=== PATIENT | male | born 1965 | race American Indian/Alaskan Native ===

== ENCOUNTER 2016-07-19 06:20 | Day surgery (SDC) | payer OTHER ==
[2016-07-19] MEDS ORDERED: SUBLIMAZE IV PRN (06:55)
[2016-07-19] MEDS ORDERED: ZOFRAN IV PRN (06:55)
--- NOTE | 2016-07-19 06:56 | Anesthesia Day of Surgery ---
Anesthesia Day of Surgery - Day of Surgery Patient Examined: Yes Patient H&P Reviewed: Yes Patient is NPO: Yes
--- NOTE | 2016-07-19 06:57 | Anesthesia Consultation ---
Anesthesia Consult and Med Hx Date of service: 07/19/16 - Airway Anesthetic Teeth Evaluation: Good, Partials (lower) ROM Head & Neck: Adequate Mental/Hyoid Distance: Adequate Mallampati Class: Class II Intubation Access Assessment: Probably Good - Pulmonary Exam CTA: Yes - Cardiac Exam Cardiac Exam: RRR - Pre-Operative Health Status ASA Pre-Surgery Classification: ASA3 Proposed Anesthetic Plan: General - Pulmonary Hx Smoking: Yes (STOPPED 1991- 1 PACK PER WEEK) Hx Sleep Apnea: No (TRANG PRE SCREEN HIGH RISK) - Cardiovascular System Hx Hypertension: Yes (SINCE AGE 23 YRS OLD) - Endocrine Hx Renal Disease: Yes (soliary kidmey) - Other Systems Hx Cancer: No - Additional Comments Anesthesia Medical History Comments: antiphospholipid-hx PE
[2016-07-19] MEDS ORDERED: NACL 0.9% 1000 ML 1,000 ML IV SCH (07:00)
[2016-07-19] MEDS ORDERED: VERSED IV NR (07:00)
[2016-07-19] MEDS ORDERED: PEPCID PO NR (07:00)
[2016-07-19] MEDS ORDERED: NACL BACTERIOSTATIC INFILTRATI ONE (07:06)
[2016-07-19] MEDS ORDERED: SUBLIMAZE ONE (07:21)
[2016-07-19] MEDS ORDERED: XYLOCAINE MPF 2% ONE (07:21)
[2016-07-19] MEDS ORDERED: DIPRIVAN 10 MG/ML IV ONE ×2 (07:22→09:05)
[2016-07-19 07:40] LABS: INR 0.93 (0.87-1.13)
[2016-07-19 07:41] LABS: Partial Thromboplastin Time 23.3 Sec. (24.2-36.6)
[2016-07-19] MEDS ORDERED: VERSED ONE (08:58)
[2016-07-19] MEDS ORDERED: DECADRON ONE (09:15)
[2016-07-19] MEDS ORDERED: ZOFRAN ONE (09:15)
[2016-07-19] MEDS ORDERED: WATER FOR IRRIG STERILE IR ONE (09:20)
[2016-07-19] MEDS ORDERED: OMNIPAQUE (300 MG) IR ONE (09:20)
[2016-07-19] MEDS ORDERED: NEO SYNEPHRINE/NS Syringe(OR USE) IV ONE (09:30)
[2016-07-19] MEDS ORDERED: ANCEF/STERILE WATER 2 GM/20 ML IV NR (09:37)
--- NOTE | 2016-07-19 10:27 | Fluoroscopy Report ---
RETROGRADE PYELOGRAM: History: Abnormal urine cytology. There is adequate filling of the left ureter and intrarenal collecting system with no filling defect or anatomic abnormalities identified. The right pyelogram was not performed. Bladder biopsy was performed per the operative notes by Dr. Molina.
[2016-07-19] MEDS: DILAUDID IV PRN ×2 (10:38→14:02)
--- NOTE | 2016-07-19 11:23 | Post Anesthesia Evaluation ---
- Post Anesthesia Evaluation Patient Participated: Yes Airway Patent: Yes Stable Respiratory Function: Yes Nausea/Vomiting: No Temp > 96.8F: Yes Pain Manageable: Yes Adequeate Hydration: Yes Anesthesia Complications: No Block Receding Appropriately: Not Applicable Patient on Ventilator: No
--- NOTE | 2016-07-19 14:00 | Short Stay Summary ---
Short Stay Documentation Date of service: 07/19/16 - Allergies and Medications Current Medications: Allergies Beta-Blockers (Beta-Adrenergic Bloc Adverse Reaction (Verified 07/05/16 16:12) FATIGUE Home Medications Medication Instructions Recorded Confirmed Last Taken Type Warfarin [Coumadin] 5 mg PO QDAY #30 tablet 09/28/14 07/19/16 07/12/16 Rx Cefuroxime Axetil [Ceftin] 500 mg PO Q12H 07/11/16 07/19/16 07/18/16 History Oxybutynin [Ditropan] 5 mg PO DAILY 07/11/16 07/19/16 07/19/16 History Tadalafil [Cialis] 20 mg PO PRN PRN 07/11/16 07/19/16 07/12/16 History Valsartan/Hydrochlorothiazide 1 tab PO QDAY 07/11/16 07/19/16 07/19/16 History [Diovan Hct 160-12.5 mg] oxyCODONE /ACETAMINOPHEN [Percocet 1 tab PO PRN PRN 07/11/16 07/19/16 07/18/16 History 5/325 mg] Active Medications Cefazolin Sodium (Ancef/Sterile Water 2 Gm/20 Ml) 2 gm IV PREOP NR Stop: 07/19/16 23:59 Fentanyl (Sublimaze) 50 mcg IV Q5MIN PRN PRN Reason: Pain , Severe (7-10) Stop: 07/22/16 06:56 Hydromorphone HCl (Dilaudid) 0.25 mg IV Q10MIN PRN PRN Reason: Pain, Moderate (4-6) Stop: 07/22/16 06:56 Last Admin: 07/19/16 10:38 Dose: 0.25 mg Sodium Chloride (Nacl 0.9% 1000 Ml) 1,000 mls @ 100 mls/hr IV DIRECT MAURICIO Last Admin: 07/19/16 07:10 Dose: 100 mls/hr Midazolam HCl (Versed) 2 mg IV PREOP NR Stop: 07/19/16 23:59 Last Admin: 07/19/16 07:29 Dose: 2 mg - Brief post op/procedure progress note Date of procedure: 07/19/16 Pre-op diagnosis: abn urine studies; bph; pelvic pain Post-op diagnosis: same Procedure: cysto bladder bx / fulg, prst urethra bx left rpg Anesthesia: GETA Findings: lg med, ext to oj; left rpg neg rt lat bn susp, Surgeon: RENUKA GONCALVES Estimated blood loss: minimal Pathology: list - Hospital course Hospital course: orpacu vase eval for post anticoag; - Disposition Condition at discharge: Good Disposition: DISCHARGED TO HOME OR SELFCARE Short Stay Discharge Plan Activity: advance as tolerated Diet: advance as tolerated Follow up with: RENUKA GONCALVES MD [Staff Physician] - 7 Days
--- NOTE | 2016-07-19 14:40 | Consultation ---
History of Present Illness - Reason for Consult Consult date: 07/19/16 Assistance in resumption of anticoagulation Requesting physician: RENUKA MOLINA - History of Present Illness This patient is a 50-year-old male that presents as an outpatient for cystoscopy. This was performed earlier today, and biopsies were taken. The patient has a reported hypercoagulable state. He was previously on Coumadin. This was held up for his procedure. He states he's been off anticoagulation for 7-8 days. He and his family stated concerns to his urologist. A vascular surgery consult is now requested for assistance in resuming anticoagulation. The patient states he had a pulmonary embolus about 5 or 6 years ago. He was started on anticoagulation at that point, and has been on Coumadin ever since. He denied any knowledge of previous DVT's, but was unsure if a venous duplex was performed Past History Past Medical History: hypertension, pulmonary embolism (In 2014), other ( Hypercoagulable state - Anti-phospholipid syndrome) Past Surgical History: Other (Above stated Cystoscopy with bx earlier today, ORIF in 2001, Neck/Chest surgery 2007, Partial Orchiectomy 1968) Social history: single (with 1 child). denies: smoking (quit smoking in 1990), alcohol abuse (drinks alcohol socially) Family history: CAD, cancer, diabetes, hypertension, stroke, other (Reports other members of family have a genetic predisposition to forming clots.) Medications and Allergies Allergies Allergy/AdvReac Type Severity Reaction Status Date / Time Beta-Blockers AdvReac FATIGUE Verified 07/05/16 16:12 (Beta-Adrenergic Bloc Home Medications Medication Instructions Recorded Confirmed Last Taken Type Warfarin [Coumadin] 5 mg PO QDAY #30 tablet 09/28/14 07/19/16 07/12/16 Rx Cefuroxime Axetil [Ceftin] 500 mg PO Q12H 07/11/16 07/19/16 07/18/16 History Oxybutynin [Ditropan] 5 mg PO DAILY 07/11/16 07/19/16 07/19/16 History Tadalafil [Cialis] 20 mg PO PRN PRN 07/11/16 07/19/16 07/12/16 History Valsartan/Hydrochlorothiazide 1 tab PO QDAY 07/11/16 07/19/16 07/19/16 History [Diovan Hct 160-12.5 mg] oxyCODONE /ACETAMINOPHEN [Percocet 1 tab PO PRN PRN 07/11/16 07/19/16 07/18/16 History 5/325 mg] Active Meds: Active Medications Cefazolin Sodium (Ancef/Sterile Water 2 Gm/20 Ml) 2 gm IV PREOP NR Stop: 07/19/16 23:59 Fentanyl (Sublimaze) 50 mcg IV Q5MIN PRN PRN Reason: Pain , Severe (7-10) Stop: 07/22/16 06:56 Hydromorphone HCl (Dilaudid) 0.25 mg IV Q10MIN PRN PRN Reason: Pain, Moderate (4-6) Stop: 07/22/16 06:56 Last Admin: 07/19/16 14:02 Dose: 0.25 mg Sodium Chloride (Nacl 0.9% 1000 Ml) 1,000 mls @ 100 mls/hr IV DIRECT MAURICIO Last Admin: 07/19/16 07:10 Dose: 100 mls/hr Midazolam HCl (Versed) 2 mg IV PREOP NR Stop: 07/19/16 23:59 Last Admin: 07/19/16 07:29 Dose: 2 mg Review of Systems All systems: negative Exam - Constitutional Vitals: Temp Pulse Resp BP Pulse Ox 97.6 F 67 16 152/99 98 07/19/16 11:15 07/19/16 11:15 07/19/16 14:02 07/19/16 11:15 07/19/16 11:15 General appearance: Present: no acute distress - EENT Eyes: Present: EOM intact ENT: hearing intact - Neck Neck: Present: supple - Respiratory Respiratory effort: normal - Extremities Extremities: no ischemia, normal temperature - Psychiatric Psychiatric: appropriate mood/affect, intact judgment & insight, cooperative - Neurologic Neurologic: no focal deficits Results - Labs Labs: Abnormal lab results 07/19/16 Range/Units 07:10 APTT 23.3 L (24.2-36.6) Sec. - Imaging and Cardiology Venous US: other (the lower extremity are preliminary venous duplex report was reviewed and found to be negative for DVT bilaterally) Assessment and Plan This patient presented for an outpatient procedure which was performed earlier today (cystoscopy with biopsy). He has a underlying hypercoagulable state (antiphospholipid syndrome). He's been off Coumadin for approximately 8 days in preparation for the procedure. He voiced concerns to his urologist about his anticoagulation. A vascular surgery consult has been requested to assist in resumption of anticoagulation in preparation for the patient to follow-up with his primary care provider upon discharge. A venous duplex was performed to ensure that the patient does not have a DVT presently. The study was negative for any evidence of acute DVT. We discussed options in resuming his anticoagulation. These included Lovenox/ Coumadin, or Eliquis/Coumadin. The Patient stated an eversion to self injections. I called and spoke with the patient's primary care provider, Dr. Della Pacheco. The patient will be discharged on Eliquis 10 mg by mouth every 12 hours to be taken in addition to his normal dose of daily Coumadin. This was explained to the patient in great detail. He states understanding and agrees to comply. He will follow-up with Dr. Diamond's office as instructed ( either later this week or early next week). He was given 1 week's supply of samples. His first dose will be given prior to discharge. He presently has mild pink tinged urine (expected post procedure). If this becomes progressively bloody, he will notify Dr. Molina. All questions were asked and answered. The patient will call for follow-up appointments. Thank you for this consultation, we will see the patient again as needed. - Patient Problems (1) Antiphospholipid antibody with hypercoagulable state Current Visit: Yes Status: Acute (2) History of pulmonary embolism Current Visit: Yes Status: Acute (3) Dysuria Current Visit: Yes Status: Acute (4) Hypertension Current Visit: No Status: Acute Qualifiers: Hypertension type: H
[2016-07-19] MEDS ORDERED: ELIQUIS PO SCH (16:00)
[2016-07-19 17:11] VITALS: BP 149/90
--- NOTE | 2016-07-20 09:42 | Vascular Lab Report ---
LOWER EXTREMITY VENOUS DUPLEX: REASON FOR EXAM: Swelling of the lower extremities. COMMENTS ON THE RIGHT: All veins visualized are freely compressible without evidence of internal echogenicity. Flow is spontaneous and phasic throughout. COMMENTS ON THE LEFT: All veins visualized are freely compressible without evidence of internal echogenicity. Flow is spontaneous and phasic throughout. IMPRESSION: No evidence of acute or chronic deep venous thrombosis in either lower extremity.
--- NOTE | 2016-07-23 16:20 | Operative Report ---
PREOPERATIVE DIAGNOSES: Recurrent prostatitis, pelvic pain, solitary kidney, history of abnormal bladder ____. POSTOPERATIVE DIAGNOSES: Recurrent prostatitis, pelvic pain, solitary kidney, history of abnormal bladder ____, bladder lesion, large median lobe, benign prostatic hypertrophy. SURGEON: Willard Molina MD ANESTHESIA: General. SPECIMEN: Bladder biopsies of lesion and random. COMPLICATIONS: None. FINDINGS: There was a very unusually large median lobe extending all the way from the verumontanum towards the bladder neck, but not extending too far into the bladder. Pancystoscopy demonstrated just at the right of bladder neck, there was a slightly small papillary lesion. An additionally with this large median lobe and mass along there were some areas of they look slightly irregular that were planned for biopsy. At this point, left UO cannulated with 8-Faroese cone-tip catheter, contrast injected. Normal left distal ureter, proximal ureter, renal pelvis calyces, no filling defects or hydro with prompt drainage. There was no right kidney. At this point, biopsy was taken of the posterior bladder wall and base right and left and random biopsy taken. Now our suspicious areas just right lateral to the bladder neck biopsy was taken. Additionally of the median lobe area to the patient's right more proximally of the prosthetic median lobe, a biopsy was taken slightly irregular area. All areas were cauterized. Left ureteral orifice was effluxing well. The scope was withdrawn, exam under anesthesia demonstrated a solitary testicle. Digital rectal exam, prostate, no nodules. The patient was awakened, transferred to PACU in good and stable condition. [facility]# [id number] ATS/NTS
== END 2016-07-19 17:05 | disposition home or self-care (01) ==
LOC: OR 06:20
PROVIDERS: ATTEND Urology
DX: N41.1 Chronic prostatitis (principal); D30.3 Benign neoplasm of bladder; N30.20 Other chronic cystitis without hematuria; N40.0 Benign prostatic hyperplasia without lower urinary tract symptoms; I10 Essential (primary) hypertension; D68.61 Antiphospholipid syndrome; D68.59 Other primary thrombophilia; Z79.01 Long term (current) use of anticoagulants; Z86.711 Personal history of pulmonary embolism; Z90.79 Acquired absence of other genital organ(s); Z87.891 Personal history of nicotine dependence; Z72.89 Other problems related to lifestyle; Z82.3 Family history of stroke; Z82.49 Family history of ischemic heart disease and other diseases of the circulatory system; Z83.3 Family history of diabetes mellitus; Z80.9 Family history of malignant neoplasm, unspecified; Z83.2 Family history of diseases of the blood and blood-forming organs and certain disorders involving the immune mechanism
CPT/HCPCS: 36415; 52204; 74420; 85610; 85730; 88305; 93970; A4217; C1758; J0690; J1100; J1170; J2250; J2370; J2405; J2704; J3010; J7030; Q9967

== ENCOUNTER 2018-02-27 19:33 | Emergency (ER) | payer OTHER ==
[2018-02-27] MEDS ORDERED: NACL 0.9% 1000 ML 1,000 ML IV ONE (20:24)
[2018-02-27 20:51] LABS: Basophils % (Auto) 0.5 % (0.0-1.8); Eosinophils # (Auto) 0.1 K/mm3 (0.0-0.4); Eosinophils % (Auto) 2.2 % (0.0-4.3); Hemoglobin 15.1 gm/dl (11.8-15.2); Mean Corpuscular HGB Conc 34 % (32-34); Mean Corpuscular Volume 95 fl (84-94); Monocytes # (Auto) 0.3 K/mm3 (0.0-0.8); Platelet Count 154 K/mm3 (140-440); Red Blood Count 4.74 M/mm3 (3.65-5.03); Red Cell Distribution Width 13.5 % (13.2-15.2)
[2018-02-27 20:58] LABS: INR 1.57 (0.87-1.13)
[2018-02-27 20:59] LABS: Partial Thromboplastin Time 26.5 Sec. (24.2-36.6)
[2018-02-27 21:07] LABS: Alanine Aminotransferase 22 units/L (7-56); Albumin 4.4 g/dL (3.9-5); BUN/Creatinine Ratio 10; Blood Urea Nitrogen 11 mg/dL (9-20); Calcium 9.2 mg/dL (8.4-10.2); Hemolysis Index 10
[2018-02-27 22:03] LABS: Bilirubin,Urine NEG (Negative); Blood,Urine NEG (Negative); Color,Urine Yellow (Yellow); Mucus,Urine FEW /HPF; Protein,Urine <15 mg/dL mg/dL (Negative); Urobilinogen,Urine < 2.0 mg/dL (<2.0)
[2018-02-27] MEDS ORDERED: DILAUDID IM ONE (23:19)
--- NOTE | 2018-02-27 23:21 | Emergency Department Report ---
ED General Adult HPI - General Chief complaint: Abdominal Pain Stated complaint: ABD PAIN Time Seen by Provider: 02/27/18 23:02 Source: patient, RN notes reviewed, old records reviewed Mode of arrival: Ambulatory Limitations: No Limitations - History of Present Illness Initial comments: This is a 52-year-old gentleman. The patient reports a history of pulmonary embolus, and reports that his primary care doctor, Dr. Della Mckay, is currently maintaining him on to anticoagulants; Coumadin and eliquis He may have a history of lupus-related antiphospholipid antibody, and is not certain. He does not currently have a barker operator. He reports that he does not have a otr owner operator truck driver. 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 Today, the patient presents to the ER with a primary complaint of left-sided abdominal pain. This pain is achy, cramping and sharp, intermittent, present since around Juanito time. The patient reports being seen at another hospital, and was prescribed famotidine. He reports not having any imaging performed. He reports his pain does not appear to radiate anywhere, and has basically been present since Juanito, but got worse today. He denies headache, neck pain, chest pain, irritated, obstructive urinary symptoms as well as testicular pain. He denies hematemesis, bright red blood per rectum. He also endorses a secondary complaint of shortness of breath, present for months, reports to his primary care doctor has referred him to a caser in, and that he has not followed up yet. This shortness of breath has been intermittent for the past few months, his pain thus, does not have exacerbating or relieving factors, with the exception of physical exertion, as per the patient. -: Gradual Location: abdomen Radiation: non-radiation Quality: aching Consistency: other Improves with: other Worsens with: other Associated Symptoms: shortness of breath - Related Data Home Medications Medication Instructions Recorded Confirmed Last Taken Tadalafil [Cialis] 20 mg PO PRN PRN 07/11/16 02/27/18 07/12/16 Valsartan/Hydrochlorothiazide 1 tab PO QDAY 07/11/16 02/27/18 07/19/16 [Diovan Hct 160-12.5 mg] Apixaban [Eliquis] 5 mg PO DAILY 02/27/18 02/27/18 Unknown Previous Rx's Medication Instructions Recorded Last Taken Type Warfarin [Coumadin] 5 mg PO QDAY #30 tablet 09/28/14 07/12/16 Rx Acetaminophen [Tylenol Arthritis] 650 mg PO Q6HR PRN #30 tablet.er 02/28/18 Unknown Rx Allergies Allergy/AdvReac Type Severity Reaction Status Date / Time Sulfa (Sulfonamide Allergy Unknown Verified 02/27/18 20:20 Antibiotics) Beta-Blockers AdvReac FATIGUE Verified 07/05/16 16:12 (Beta-Adrenergic [facility] ED Review of Systems ROS: Stated complaint: ABD PAIN Other details as noted in HPI Constitutional: denies: fever Eyes: denies: vision change ENT: denies: congestion Respiratory: shortness of breath. denies: cough Cardiovascular: denies: chest pain Gastrointestinal: abdominal pain Genitourinary: denies: urgency, dysuria, frequency, testicular pain Musculoskeletal: denies: back pain Skin: denies: lesions Neurological: weakness Psychiatric: anxiety ED Past Medical Hx - Past Medical History Hx Hypertension: Yes (SINCE AGE 23 YRS OLD) Hx Pulmonary Embolism: Yes Hx Renal Disease: Yes (soliary kidmey) Hx HIV: No Additional medical history: PE 2010 - Surgical History Additional Surgical History: ledt hand fusion, cervical neck surgery - Social History Smoking Status: Never Smoker Substance Use Type: Alcohol - Medications Home Medications: Home Medications Medication Instructions Recorded Confirmed Last Taken Type Warfarin [Coumadin] 5 mg PO QDAY #30 tablet 09/28/14 02/27/18 07/12/16 Rx Tadalafil [Cialis] 20 mg PO PRN PRN 07/11/16 02/27/18 07/12/16 History Valsartan/Hydrochlorothiazide 1 tab PO QDAY 07/11/16 02/27/18 07/19/16 History [Diovan Hct 160-12.5 mg] Apixaban [Eliquis] 5 mg PO DAILY 02/27/18 02/27/18 Unknown History Acetaminophen [Tylenol Arthritis] 650 mg PO Q6HR PRN #30 tablet.er 02/28/18 Unknown Rx ED Physical Exam - General Limitations: No Limitations General appearance: alert, in no apparent distress - Head Head exam: Present: atraumatic, normocephalic - Eye Eye exam: Present: normal appearance, EOMI. Absent: nystagmus - ENT ENT exam: Present: normal exam, normal orophraynx, mucous membranes moist, normal external ear exam - Neck Neck exam: Present: normal inspection, full ROM. Absent: tenderness, meningismus - Respiratory Respiratory exam: Present: decreased breath sounds. Absent: respiratory distres s, wheezes, rales, rhonchi, stridor - Cardiovascular Cardiovascular Exam: Present: regular rate, normal rhythm, normal heart sounds. Absent: bradycardia, tachycardia, irregular rhythm, systolic murmur, diastolic murmur, rubs, gallop - GI/Abdominal GI/Abdominal exam: Present: soft, tenderness, other (there is left-sided abdominal tenderness, with no rebound, guarding or peritoneal signs). Absent: distended, guarding, rebound, rigid, pulsatile mass - Rectal Rectal exam: Present: deferred - exam: Present: normal inspection, testicular tenderness, other (chaperoned by nurse Pearl Gold) External exam: Present: normal external exam, other (there is testicular tenderness. There is normal testicular lie. Uncertain which testicle is present.) - Extremities Exam Extremities exam: Present: normal inspection - Back Exam Back exam: Present: normal inspection, full ROM. Absent: paraspinal tenderness, vertebral tenderness - Neurological Exam Neurological exam: Present: alert, oriented X3, other (Extraocular movements intact. Tongue midline. No facial droop. Facial sensation intact to light touch in the V1, V2, V3 distribution bilaterally. 5 and 5 strength in 4 extremities.. Sensation is intact to light touch in 4 extremities.). Absent: motor sensory deficit - Psychiatric Psychiatric exam: Present: normal affect, normal mood - Skin Skin exam: Present: warm, dry, intact, normal color. Absent: rash ED Course Vital Signs 02/27/18 19:58 Temperature 98.1 F Pulse Rate 87 Respiratory 16 Rate Blood Pressure 139/89 O2 Sat by Pulse 98 Oximetry - Reevaluation(s) Reevaluation #1: 02/28/18 00:49 Differential diagnosis, including but not limited to: Orchitis, epididymitis, torsion, urinary tract infection, renal colic, retroperitoneal hematoma, colitis, diverticulitis, pulmonary embolus, pneumonia Assessment and plan: 52-year-old gentleman with a primary complaint of abdominal pain, secondary complaint of shortness of breath, reports compliance with 2 systemic anticoagulant medications, reports no IVC filter, with a negative d- dimer, with no tachycardia or hypoxia, based off of this information, I feel the patient is low posttest probability, does not require additional risk stratification for pulmonary embolus. A noncontrast CT scan of the abdomen and pelvis is pending, given history of being born with single kidney. A urinalysis is pending, and the patient was found to have testicular tenderness on his examination, although not having pain. Urinalysis is pending, as well as testicular ultrasound. We will reassess after his initial data points. An EKG is also pending at this time. Reevaluation #2: 02/28/18 02:09 Testicular ultrasound negative for acute immediate surgical disease. CT scan of the abdomen and pelvis suggest prostatic abnormality, otherwise no acute disease. Patient resting comfortably for hours, and appears to be in no acute d istress at this point in time. I have counseled the patient to follow-up with his outpatient urologist, Dr. Miller He will be counseled to modify his anticoagulation consumption, and discontinue Coumadin, and to follow up with a barker operator for his leukopenia, and a otr owner operator truck driver or barker operator for his reported hypercoagulable state. He will be counseled to follow up with an outpatient caser in. There does not appear to be an emergent medical condition at this time, the patient will be medically stable to follow up as an outpatient. ED Medical Decision Making - Lab Data Result diagrams: 02/27/18 20:38 02/27/18 20:38 Vital Signs 02/27/18 19:58 Temperature 98.1 F Pulse Rate 87 Respiratory 16 Rate Blood Pressure 139/89 O2 Sat by Pulse 98 Oximetry Lab Results 02/27/18 02/27/18 02/27/18 Range/Units 20:38 20:38 20:38 WBC 2.4 L (4.5-11.0) K/mm3 RBC 4.74 (3.65-5.03) M/mm3 Hgb 15.1 (11.8-15.2) gm/dl Hct 45.0 (35.5-45.6) % MCV 95 H (84-94) fl MCH 32 (28-32) pg MCHC 34 (32-34) % RDW 13.5 (13.2-15.2) % Plt Count 154 (140-440) K/mm3 Lymph % (Auto) 41.0 H (13.4-35.0) % [place] % (Auto) 14.0 H (0.0-7.3) % Eos % (Auto) 2.2 (0.0-4.3) % Baso % (Auto) 0.5 (0.0-1.8) % Lymph # 1.0 L (1.2-5.4) K/mm3 [place] # 0.3 (0.0-0.8) K/mm3 Eos # 0.1 (0.0-0.4) K/mm3 Baso # 0.0 (0.0-0.1) K/mm3 Seg Neutrophils % 42.3 (40.0-70.0) % Seg Neutrophils # 1.0 L (1.8-7.7) K/mm3 PT 19.2 H (12.2-14.9) Sec. INR 1.57 H (0.87-1.13) APTT 26.5 (24.2-36.6) Sec. D-Dimer (0-234) ng/mlDDU Sodium 141 (137-145) mmol/L Potassium 4.1 (3.6-5.0) mmol/L Chloride 101.8 (98-107) mmol/L Carbon Dioxide 30 (22-30) mmol/L Anion Gap 13 mmol/L BUN 11 (9-20) mg/dL Creatinine 1.1 (0.8-1.5) mg/dL Estimated GFR > 60 ml/min BUN/Creatinine Ratio 10 % Glucose 95 (75-100) mg/dL Calcium 9.2 (8.4-10.2) mg/dL Total Bilirubin 0.20 (0.1-1.2) mg/dL AST 23 (5-40) units/L ALT 22 (7-56) units/L Alkaline Phosphatase 55 (35-129) units/L Total Protein 7.7 (6.3-8.2) g/dL Albumin 4.4 (3.9-5) g/dL Albumin/Globulin Ratio 1.3 % Lipase 40 (13-60) units/L Urine Color (Yellow) Urine Turbidity (Clear) Urine pH (5.0-7.0) Ur Specific [place] (1.003-1.030) Urine Protein (Negative) mg/dL Urine Glucose (UA) (Negative) mg/dL Urine Ketones (Negative) mg/dL Urine Blood (Negative) Urine Nitrite (Negative) Urine Bilirubin (Negative) Urine Urobilinogen (<2.0) mg/dL Ur Leukocyte Esterase (Negative) Urine WBC (Auto) (0.0-6.0) /HPF Urine RBC (Auto) (0.0-6.0) /HPF U Epithel Cells (Auto) (0-13.0) /HPF Urine Mucus /HPF 02/27/18 02/27/18 Range/Units 20:38 21:04 WBC (4.5-11.0) K/mm3 RBC (3.65-5.03) M/mm3 Hgb (11.8-15.2) gm/dl Hct (35.5-45.6) % MCV (84-94) fl MCH (28-32) pg MCHC (32-34) % RDW (13.2-15.2) % Plt Count (140-440) K/mm3 Lymph % (Auto) (13.4-35.0) % [place] % (Auto) (0.0-7.3) % Eos % (Auto) (0.0-4.3) % Baso % (Auto) (0.0-1.8) % Lymph # (1.2-5.4) K/mm3 [place] # (0.0-0.8) K/mm3 Eos # (0.0-0.4) K/mm3 Baso # (0.0-0.1) K/mm3 Seg Neutrophils % (40.0-70.0) % Seg Neutrophils # (1.8-7.7) K/mm3 PT (12.2-14.9) Sec. INR (0.87-1.13) APTT (24.2-36.6) Sec. D-Dimer 153.37 (0-234) ng/mlDDU Sodium (137-145) mmol/L Potassium (3.6-5.0) mmol/L Chloride (98-107) mmol/L Carbon Dioxide (22-30) mmol/L Anion Gap mmol/L BUN (9-20) mg/dL Creatinine (0.8-1.5) mg/dL Estimated GFR ml/min BUN/Creatinine Ratio % Glucose (75-100) mg/dL Calcium (8.4-10.2) mg/dL Total Bilirubin (0.1-1.2) mg/dL AST (5-40) units/L ALT (7-56) units/L Alkaline Phosphatase (35-129) units/L Total Protein (6.3-8.2) g/dL Albumin (3.9-5) g/dL Albumin/Globulin Ratio % Lipase (13-60) units/L Urine Color Yellow (Yellow) Urine Turbidity Clear (Clear) Urine pH 5.0 (5.0-7.0) Ur Specific [place] 1.019 (1.003-1.030) Urine Protein <15 mg/dl (Negative) mg/dL Urine Glucose (UA) Neg (Negative) mg/dL Urine Ketones Neg (Negative) mg/dL Urine Blood Neg (Negative) Urine Nitrite Neg (Negative) Urine Bilirubin Neg (Negative) Urine Urobilinogen < 2.0 (<2.0) mg/dL Ur Leukocyte Esterase Neg (Negative) Urine WBC (Auto) 1.0 (0.0-6.0) /HPF Urine RBC (Auto) 2.0 (0.0-6.0) /HPF U Epithel Cells (Auto) 1.0 (0-13.0) /HPF Urine Mucus Few /HPF - EKG Data -: EKG Interpreted by Ut EKG shows normal: sinus rhythm - EKG Data 02/28/18 02:08 Sinus, 68 bpm, normal axis, WI interval prolonged, high left ventricular voltage, unchanged from prior from 2014, not consistent with ST elevation myocardial infarction. - Radiology Data Radiology results: pending, report reviewed, image reviewed interpreted by me: X-ray of the chest is negative for acute disease. Ordering Physician: ROBERT MCKENZIE MD Date of Service: 02/27/18 Procedure(s): US testicular doppler comp Accession Number(s): [id number] cc: ROBERT MCKENZIE MD FINAL REPORT EXAM: US Testicular CLINICAL INDICATIONS: TESTICULAR PAIN FINDINGS: Real-time ultrasound of the scrotum was performed. The right testicle is not seen. The patient presently has history of undescended right testicle. The left testicle measures 5.1 x 2.8 x 3.9 cm. There is no evidence of testicular mass or testicular torsion. The left epididymal head measures 1.0 x 1.3 cm. No mass is seen. There is a small left hydrocele. IMPRESSION: THE RIGHT TESTICLE IS NOT SEEN NO EVIDENCE OF LEFT TESTICULAR MASS OR TESTICULAR TORSION Transcribed By: ANGELA Dictated By: ANSHU PHILLIPS MD Electronically Authenticated By: ANSHU PHILLIPS MD Signed Date/Time: 02/28/18 0149 cc: ROBERT MCKENZIE MD FINAL REPORT EXAM: CT A/P w/o Contrast CLINICAL INDICATIONS: ABD PAIN FINDINGS: Unenhanced CT of the abdomen and pelvis was performed. There is coronary artery calcification. The ascending thoracic aorta is mildly dilated at 4.1 cm. Abdomen: No suspect focal hepatic lesion is seen. The spleen, adrenal glands, pancreas, gallbladder are unremarkable. No normal right kidney is seent. There is a small reniform soft tissue density anterior to the right psoas muscle at the level of L3-L4, axial images 96-97 which could represent a very small right kidney, approximately 1.6 x 0.6 cm, likely consequence of remote renal insult. The left kidney is normal in size. There is a 0.2 cm left nonobstructing renal calculus. No ureteral calculus or hydronephrosis is identified. There is no small or large bowel obstruction. Pelvis: There is a normal appendix. The prostate appears large and appears to extend into the soft tissues to the right of the expected prostatic margin on images 171-178. Prostatic mass is not excluded. Consider correlation with pelvic MRI or correlation with serum PSA as clinically indicated. The urinary bladder is unremarkable. The right testicle was not seen in the scrotum on ultrasound. No testicle is seen in the visualized portion of the inguinal canal. IMPRESSION: ABDOMEN: NO NORMAL RIGHT KIDNEY IS SEEN. THERE IS A SMALL RENIFORM STRUCTURE AN TERIOR TO THE RIGHT PSOAS MUSCLE WHICH COULD REPRESENT A VERY SMALL RIGHT KIDNEY, LIKELY CONSEQUENCE OF REMOTE LEFT RIGHT RENAL INSULT SMALL LEFT NONOBSTRUCTING RENAL CALCULUS. NO URETERAL CALCULUS OR HYDRONEPHROSIS IS SEEN PELVIS: THE PROSTATE APPEARS LARGE AND EXTENDS INTO THE FAT SOFT TISSUES LALA ROUNDING THE EXPECTED MARGIN OF THE PROSTATE. PROSTATIC MASS IS NOT EXCLUDED. THE EXAMINATION SUBMITTED BY LACK OF INTRAVENOUS CONTRAST. CONSIDER PELVIC MRI OR CORRELATION WITH SERUM PSA Transcribed By: ANGELA Dictated By: ANSHU PHILLIPS MD Electronically Authenticated By: ANSHU PHILLIPS MD Signed Date/Time: 02/28/18 0155 Critical care attestation.: If time is entered above; I have spent that time in minutes in the direct care of this critically ill patient, excluding procedure time. ED Disposition Clinical Impression: Abdominal pain, Shortness of breath Disposition: TO HOME OR SELFCARE Is pt being admited?: No Does the pt Need Aspirin: No Condition: Good Additional Instructions: Discontinued Coumadin therapy, and remain compliant with monotherapy with eliquis. Follow up with the barker operator within the next 7-10 days. Local hematology specialists include Drs. Flynn, Dr. Ladd Continue other outpatient medications, and follow up with the mri specialist within the next month. Dr. Shaver is a local mri specialist. In addition, if patient truly has lupus or lupus antiphospholipid antibody, he should follow up with her otr owner operator truck driver, or barker operator within the next month. CT scan of the abdomen and pelvis demonstrated nonspecific abnormality in the prostate, suggestive, but not definitively diagnostic of cancer, tumor, malignancy. Follow-up with your urologist within the next month for this. Not following up as recommended may be resultant undiagnosed cancer, tumor, malignancy. Please return to the ER right away with new pain, worsened pain, migration of pain, projectile vomiting, change in mental status, confusion, inability to sp eak, inability to breathe. Referrals: ZAHEER LADD MD [Staff Physician] - 7-10 days GERARDO FLYNN MD [Staff Physician] - 7-10 days BRENDAN SHAVER MD [Staff Physician] - 7-10 days RENUKA GONCALVES MD [Staff Physician] - 3-5 Days
[2018-02-28] MEDS ORDERED: DILAUDID ONE (01:22)
--- NOTE | 2018-02-28 01:49 | Ultrasound Report ---
FINAL REPORT EXAM: US Testicular CLINICAL INDICATIONS: TESTICULAR PAIN FINDINGS: Real-time ultrasound of the scrotum was performed. The right testicle is not seen. The patient presently has history of undescended right testicle. The left testicle measures 5.1 x 2.8 x 3.9 cm. There is no evidence of testicular mass or testicular torsion. The left epididymal head measures 1.0 x 1.3 cm. No mass is seen. There is a small left h ydrocele. IMPRESSION: THE RIGHT TESTICLE IS NOT SEEN NO EVIDENCE OF LEFT TESTICULAR MASS OR TESTICULAR TORSION
--- NOTE | 2018-02-28 01:55 | Cat Scan Report ---
FINAL REPORT EXAM: CT A/P w/o Contrast CLINICAL INDICATIONS: ABD PAIN FINDINGS: Unenhanced CT of the abdomen and pelvis was performed. There is coronary artery calcification. The ascending thoracic aorta is mildly dilated at 4.1 cm. Abdomen: No suspect focal hepatic lesion is seen. The spleen, adrenal glands, pancreas, gallbladder are unrem arkable. No normal right kidney is seent. There is a small reniform soft tissue density anterior to the right psoas muscle at the level of L3-L4, axial images 96-97 which could represent a very small right kidn ey, approximately 1.6 x 0.6 cm, likely consequence of remote renal insult. The left kidney is normal in size. There is a 0.2 cm left nonobstructing renal calculus. No ureteral calculus or hydronephrosis is identified. There is no small or large bowel obstruction. Pelvis: There is a normal appendix. The prostate appears large and appears to extend into the soft tissues to the right of the expected p rostatic margin on images 171-178. Prostatic mass is not excluded. Consider correlation with pelvic MRI or correlation with serum PSA as clinically indicated. The urinary bladder is unremarkable. The right testicle was not seen in the scrotum on ultrasound. No testicle is seen in the visualized portion of the inguinal canal. IMPRESSION: ABDOMEN: NO NORMAL RIGHT KIDNEY IS SEEN. THERE IS A SMALL RENIFORM STRUCTURE ANTERIOR TO THE RIGHT P SOAS MUSCLE WHICH COULD REPRESENT A VERY SMALL RIGHT KIDNEY, LIKELY CONSEQUENCE OF REMOTE LEFT RIGHT RENAL INSULT SMALL LEFT NONOBSTRUCTING RENAL CALCULUS. NO URETERAL CALCULUS OR HYDRONEPHROSIS IS SEEN PELVIS: THE PROSTATE APPEARS LARGE AND EXTENDS INTO THE FAT SOFT TISSUES SURROUNDING THE EXPECTED MAR GIN OF THE PROSTATE. PROSTATIC MASS IS NOT EXCLUDED. THE EXAMINATION SUBMITTED BY LACK OF INTRAVENO US CONTRAST. CONSIDER PELVIC MRI OR CORRELATION WITH SERUM PSA
[2018-02-28 02:55] VITALS: BP 144/91
--- NOTE | 2018-02-28 04:46 | XRay Report ---
FINAL REPORT PROCEDURE: XR CHEST ROUTINE 2V TECHNIQUE: PA and lateral chest radiographs were obtained. CPT 39844 HISTORY: dyspnea COMPARISON: No prior studies are available for comparison. FINDINGS: Heart: Normal. Mediastinum/Vessels: Normal. Lungs/Pleural space: Normal. Bony thorax: No acute osseous abnormality. Other: IMPRESSION: Normal examination.
== END 2018-02-28 02:51 | disposition home or self-care (01) ==
LOC: ED 19:33
DX: R06.02 Shortness of breath (principal); R10.9 Unspecified abdominal pain; I10 Essential (primary) hypertension; Z79.01 Long term (current) use of anticoagulants; Z88.2 Allergy status to sulfonamides; Z88.8 Allergy status to other drugs, medicaments and biological substances
CPT/HCPCS: 36415; 71046; 74176; 80053; 81001; 83690; 85025; 85379; 85610; 85730; 93005; 93010; 93975; 96372; 99284; J1170